=== PATIENT | female | born 1950 | race Caucasian/White ===

== ENCOUNTER 2018-06-01 13:57 | Emergency (ER) | payer OTHER ==
[2018-06-01 14:24] VITALS: RESP 16
[2018-06-01] MEDS ORDERED: Sodium Chloride 0.9% 1,000 ML IV STA (15:40)
[2018-06-01 16:11] LABS: BASO % 0.6 % (0.0-2.0); EOS # 0.1 K/uL (0.0-0.7); EOS % 1.7 % (0.0-4.0); LYMPH # 2.1 K/uL (1.0-4.3); LYMPH % 29.9 % (20.0-40.0); MEAN CELL VOLUME 90.4 fl (81.0-99.0); MEAN CORPUSCULAR HEMOGLOBIN 30.7 pg (27.0-31.0); MEAN CORPUSCULAR HGB CONC 33.9 g/dL (33.0-37.0); MEAN PLATELET VOLUME 8.9 fl (7.2-11.7); MONO # 0.4 K/uL (0.0-0.8); MONO % 6.2 % (0.0-10.0); NEUT # 4.2 K/uL (1.8-7.0); NEUT % 61.6 % (50.0-75.0); RBC 4.25 Mil/uL (3.80-5.20); RED CELL DISTRIBUTION WIDTH 14.9 % (11.5-14.5); WHITE BLOOD COUNT 6.9 K/uL (4.8-10.8)
[2018-06-01 16:24] LABS: BLOOD UREA NITROGEN 11 mg/dl (7-17); CALCIUM 10.1 mg/dL (8.4-10.2); GFR NON-AFRICAN AMERICAN > 60
--- NOTE | 2018-06-01 16:31 | ED PDOC ---
HPI: Headache Time Seen by Provider: 06/01/18 14:43 Chief Complaint (Nursing): Headache Chief Complaint (Provider): PATEL History Per: Patient Additional Complaint(s): 67 y/o F with HTN, HL, DM who presents with left sided PATEL x 2 days. Pt states th at she has pulsing sensation on left side of her head for the past 2 days. She has intermittent pulsations and has taken Tylenol for the pain, last this morning at 11:30am. She had molars extracted 4 days ago. She has had some left sided facial swelling and ear fullness. She has been taking the antibiotic prescribed to her by dentist. She feels that this PATEL is similar to one that she had in 2016 at which time she was reportedly told that she had a TIA. Denies unilateral weakness, visual disturbance, dizziness, palpitations, speech disturbance or gait instability. Further denies photophobia. Past Medical History Reviewed: Historical Data, Nursing Documentation, Vital Signs Vital Signs: Last Vital Signs Temp 98.1 F 06/01/18 14:23 Pulse 100 H 06/01/18 14:23 Resp 16 06/01/18 14:23 BP 150/97 H 06/01/18 14:23 Pulse Ox 98 06/01/18 14:23 - Medical History PMH: Depression, Diabetes, HTN, Hypercholesterolemia - Family History Family History: States: Unknown Family Hx - Home Medications Home Medications: Ambulatory Orders Medication Instructions Recorded Oxycodone HCl/Acetaminophen 1 tab PO Q6 PRN #12 tab 11/07/15 [Percocet 325 mg-5 mg] RX: Naproxen 500 mg PO BID #30 tablet 11/07/15 Acetaminophen/Butalbital/Caf 1 tab PO Q4 PRN 7 Days tab 06/01/18 [Fioricet] - Allergies Allergies/Adverse Reactions: Allergies Allergy/AdvReac Type Severity Reaction Status Date / Time No Known Allergies Allergy Verified 11/07/15 06:08 Review of Systems Constitutional: Negative for: Fever, Chills ENT: Negative for: Ear Pain Cardiovascular: Negative for: Chest Pain, Palpitations Neurological: Positive for: Headache. Negative for: Weakness, Numbness, Incoordination, Change in Speech, Confusion, Altered Mental Status, Dizziness Physical Exam - Reviewed Nursing Documentation Reviewed: Yes Vital Signs Reviewed: Yes - Physical Exam Appears: Positive for: Uncomfortable Head Exam: Positive for: ATRAUMATIC Skin: Positive for: Normal Color Eye Exam: Positive for: Normal appearance, EOMI, PERRL. Negative for: Conjunctival injection ENT: Positive for: Normal ENT Inspection Neck: Positive for: Normal, Painless ROM Cardiovascular/Chest: Positive for: Regular Rate, Rhythm Respiratory: Positive for: Normal Breath Sounds Neurologic/Psych: Positive for: Alert, felt pad cutter II-XII (no tongue deviation, symmetrical smile, able to puff cheeks. ), Oriented, Motor/Sensory Deficits (strength equal in B/L and lower extremities. sensation to light touch intact in B/L upper and lower extremities. ), Mood/Affect (appropriate), Cerebellar Tests (able to walk in straight line ), Gait (stable). 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 No diagnosis of TIA was documented. Head CT w/o contrast: FINDINGS: HEMORRHAGE: No intracranial hemorrhage. BRAIN: Chronic lacune left basal ganglia anteriorly. Otherwise normal appearing brain parenchyma is appreciated above and below the tentorium including the brainstem. A small Pacchionian granulation is seen the right transverse sinus. Good corticomedullary differentiation is preserved. There is no mass effect or suspicious extra-axial collection identified. Midline brain anatomy remains within VENTRICLES: Normal limits. CALVARIUM: Unremarkable. PARANASAL SINUSES: Unremarkable as visualized. No significant inflammatory changes. MASTOID AIR CELLS: Unremarkable as visualized. No inflammatory changes. OTHER FINDINGS: None. IMPRESSION: Stable unenhanced head CT without interval acute findings by standard CT criteria. Chronic lacune again noted left basal ganglia. 17:00: re-evaluated, PATEL has improved significantly, no focal neurological deficits. Pt anxious to go home. She was given return instructions and advised to follow-up with her primary care doctor for further evaluation of headaches and to continue therapy given to her by her dentist. Take Fioricet as needed for headache. Sable for d/c home. Disposition - Clinical Impression Clinical Impression: Migraine - Patient ED Disposition Is Patient to be Admitted: No - Disposition Referrals: Jaspreet Bowman MD [Medical Doctor] - Disposition: Routine/Home Disposition Time: 17:38 Condition: STABLE Additional Instructions: F/u with your primary care doctor for further care of migraines/PATEL. Return to ER if you develop weakness on one side of your body, visual disturbance, severe dizziness or Headache. Take Fioricet for migraine and continue medications for your tooth extraction. Prescriptions: Acetaminophen/Butalbital/Caf [Fioricet] 1 tab PO Q4 PRN 7 Days tab PRN Reason: Headache Instructions: Headache, Adult (DC) Forms: [facility] (Polish) Print Language: GUINEAN
--- NOTE | 2018-06-01 16:34 | CT ---
Date of service: 06/01/2018 PROCEDURE: CT HEAD WITHOUT CONTRAST. HISTORY: Headache similar to prior TIA COMPARISON: None available. TECHNIQUE: Axial computed tomography images were obtained through the head/brain without intravenous contrast. Radiation dose: Total exam DLP = 768.41 mGy-cm. This CT exam was performed using one or more of the following dose reduction techniques: Automated exposure control, adjustment of the mA and/or kV according to patient size, and/or use of iterative reconstruction technique. FINDINGS: HEMORRHAGE: No intracranial hemorrhage. BRAIN: Chronic lacune left basal ganglia anteriorly. Otherwise normal appearing brain parenchyma is appreciated above and below the tentorium including the brainstem. A small Pacchionian granulation is seen the right transverse sinus. Good corticomedullary differentiation is preserved. There is no mass effect or suspicious extra-axial collection identified. Midline brain anatomy remains within VENTRICLES: Normal limits. CALVARIUM: Unremarkable. PARANASAL SINUSES: Unremarkable as visualized. No significant inflammatory changes. MASTOID AIR CELLS: Unremarkable as visualized. No inflammatory changes. OTHER FINDINGS: None. IMPRESSION: Stable unenhanced head CT without interval acute findings by standard CT criteria. Chronic lacune again noted left basal ganglia.
[2018-06-01 18:27] VITALS: BP 138/80; PULSE 78; TEMP 97.9
[2018-06-01 21:11] VITALS: O2SAT 98
== END 2018-06-01 18:00 | disposition home or self-care (01) ==
LOC: H.ER 13:57
DX: G43.909 Migraine, unspecified, not intractable, without status migrainosus (principal); E11.9 Type 2 diabetes mellitus without complications; E78.00 Pure hypercholesterolemia, unspecified; F32.9 Major depressive disorder, single episode, unspecified; I10 Essential (primary) hypertension; Z86.73 Personal history of transient ischemic attack (TIA), and cerebral infarction without residual deficits